=== PATIENT | female | born 1965 | race Two or more races ===

== ENCOUNTER → 2016-07-23 | Outpatient (CLI) | payer OTHER ==
--- NOTE | 2016-07-23 18:34 | DX ---
Three-View Cervical Spine Reason for examination: Neck pain and upper extremity radiculopathy in a 50-year-old female. Findings: A fracture is not identified. There is straightening of the normal cervical curvature, othe rwise the alignment is normal. Prevertebral soft tissues appear normal. Vertebral body heights are we ll-maintained. Degenerative changes are seen with disk space loss and vertebral body osteophytic danya ing noted at C4-C5 and C5-C6. IMPRESSION: 1. Negative for acute abnormality with possible muscle spasm noted. 2. Degenerative changes are seen as detailed above. If symptoms persist, MRI could be considered for further evaluation.
== END ==
LOC: CIMAGING 17:12
PROVIDERS: ATTEND Family Medicine
DX: M54.12 Radiculopathy, cervical region (principal)
CPT/HCPCS: 72040-PO

== ENCOUNTER → 2016-09-12 | Outpatient (CLI) | payer OTHER | LOC: CIMAGING 15:18 | PROVIDERS: ATTEND Physician Assistant Medical | DX: Z13.89 Encounter for screening for other disorder (principal); R91.8 Other nonspecific abnormal finding of lung field | CPT/HCPCS: 71020-PO ==

== ENCOUNTER 2016-09-20 17:29 | Emergency (ER) | payer OTHER ==
[2016-09-20] MEDS ORDERED: NS 1,000 ML IV ONE (17:57)
[2016-09-20 18:17] LABS: % IMMATURE GRANULYOCYTES 1.3 % (0.0-1.1); ADD DIFF? NO; ADD MORPH? NO; ADD SCAN? NO; ATYPICAL LYMPHOCYTE FLAG 0 (0-99); FRAGMENT RBC FLAG 0 (0-99); HEMATOCRIT 38.9 % (38.0-47.0); HEMOGLOBIN 13.1 g/dL (12.6-16.3); LEFT SHIFT FLG 70 (0-99); LIPEMIA HEMOLYSIS FLAG 80 (0-99); MEAN CELL HEMOGLOBIN 30.8 pg (27.9-34.1); MEAN CELL HEMOGLOBIN CONCENTR. 33.7 g/dL (32.4-36.7); MEAN CELL VOLUME 91.3 fL (81.5-99.8); MEAN PLATELET VOLUME 10.5 fL (8.7-11.7); PLATELET CLUMPS FLAG 10 (0-99); PLATELET COUNT 322 10^3/uL (150-400); RED BLOOD CELL COUNT 4.26 10^6/uL (4.18-5.33); RED CELL DISTRIBUTION WIDTH 14.3 % (11.5-15.2)
[2016-09-20 18:24] LABS: ALANINE AMINOTRANSFERASE 96 IU/L (9-52); ALBUMIN 3.8 g/dL (3.5-5.0); ALKALINE PHOSPHATASE 198 IU/L (38-126); ANION GAP 11 mEq/L (8-16); ASPARTATE AMINOTRANSFERASE 45 IU/L (14-46); BILIRUBIN,TOTAL 11.2 mg/dL (0.1-1.4); BILIRUBIN-CONJUGATED 9.7 mg/dL (0.0-0.5); BILIRUBIN-UNCONJUGATED 1.5 mg/dL (0.0-1.1); CALCIUM 9.2 mg/dL (8.5-10.4); CARBON DIOXIDE 24 mEq/l (22-31); CHLORIDE 108 mEq/L (97-110); CREATININE 0.8 mg/dL (0.6-1.0); GLOMERULAR FILTRATION RATE > 60; GLUCOSE 163 mg/dL (70-100); POTASSIUM 3.9 mEq/L (3.5-5.2); SODIUM 143 mEq/L (134-144); TOTAL PROTEIN 7.5 g/dL (6.3-8.2)
--- NOTE | 2016-09-20 18:29 | EDPHY ---
H & P Time Seen by Provider: 09/20/16 18:01 HPI/ROS: Chief complaint. Painless jaundice HPI. 50-year-old female here with yellow eyes in yellow skin started today. She was at a in family gathering in the family noticed that her eyes were yellow. She has no abdominal pain, vomiting diarrhea, fever. She had influenza 2 weeks ago and then 1 week ago was diagnosed with pneumonia. She has taken cefdinir and Tussionex as antibiotic and cough medication. Did cause itching and so medications have been changed around somewhat. No previous symptoms of jaundice. No reasons for hepatitis or recent travel. She still has her gallbladder ROS Constitutional. no fever/chills, no weakness Eyes. Yellow eyes ENT. no sore throat, no nasal drainage Cardiovascular. no chest pain Respiratory. no shortness of breath, no cough Abdominal. no abdominal pain, no nausea/vomiting, no diarrhea . no problems urinating MS. no calf pain/swelling, no neck/back pain, no joint pain Skin. no rash Lymph. no swollen glands Neuro. no headache, no dizziness, no difficulty walking or with speech Past Medical/Surgical History: Past medical history significant for depression Social History: Single, nonsmoker, no alcohol Smoking Status: Never smoked Physical Exam: General Appearance: Alert pleasant well-developed female mild distress vital signs are stable Eyes: Scleral icterus. ENT, Mouth: Mucous membranes are moist. Respiratory: There are no retractions, lungs are clear to auscultation. Cardiovascular: Regular rate and rhythm. Gastrointestinal: Abdomen is soft and nontender, no masses, bowel sounds normal. Neurological: Awake and alert, sensory and motor exams grossly normal. Skin: Warm and dry, no rashes. Musculoskeletal: Neck is supple nontender. Extremities symmetrical, full range of motion. Psychiatric: Patient is oriented X 3, there is no agitation. Constitutional: Initial Vital Signs Temperature (C) 36.7 C 09/20/16 17:33 Heart Rate 90 09/20/16 17:33 Respiratory Rate 17 09/20/16 17:33 Blood Pressure 119/70 09/20/16 17:33 O2 Sat (%) 95 09/20/16 17:33 O2 Delivery Mode Room Air Allergies/Adverse Reactions: chlorpheniramine polistirex [From Tussionex] Allergy (Verified 09/20/16 17:30) hydrocodone polistirex [From Tussionex] Allergy (Verified 09/20/16 17:30) Home Medications: Medication Instructions Recorded Cefdinir 09/20/16 Ventolin Hfa Inhaler 09/20/16 Medical Decision Making - Diagnostics Imaging: CT abdomen pelvis with IV contrast shows splenomegaly, hepatomegaly. No biliary duct dilation. No ascites. No pancreatic mass visible. This is reviewed by me and discussed with Dr. Potter Procedures: IV normal saline ED Course/Re-evaluation: I consulted and discussed the case with Dr. Mackey on-call for Gastroenterology. He feels this may well be drug induced hyperbilirubinemia. He recommends stopping the cefdinir. He would like to see the patient in the office on Thursday. Re-evaluation at 8:00 p.m.. Patient is stable. She has no complaints. She is fine with being treated as an outpatient. We discussed lab results, treatment plan, criteria for return importance of follow-up further evaluation. She expresses understanding and agreement Differential Diagnosis: Certainly I was concerned about pancreatic cancer or biliary duct obstruction or cancer. This may be drug induced. I have also considered hepatitis - Data Points Laboratory Results: Laboratory Results 09/20/16 17:50 09/20/16 17:50 09/20/16 09/20/16 17:50 17:50 WBC 7.78 10^3/uL 10^3/uL (3.80-9.50) RBC 4.26 10^6/uL 10^6/uL (4.18-5.33) Hgb 13.1 g/dL g/dL (12.6-16.3) Hct 38.9 % % (38.0-47.0) MCV 91.3 fL fL (81.5-99.8) MCH 30.8 pg pg (27.9-34.1) MCHC 33.7 g/dL g/dL (32.4-36.7) RDW 14.3 % % (11.5-15.2) Plt Count 322 10^3/uL 10^3/uL (150-400) MPV 10.5 fL fL (8.7-11.7) Neut % (Auto) 80.0 % H % (39.3-74.2) Lymph % (Auto) 8.7 % L % (15.0-45.0) [place] % (Auto) 9.5 % % (4.5-13.0) Eos % (Auto) 0.1 % L % (0.6-7.6) Baso % (Auto) 0.4 % % (0.3-1.7) Nucleat RBC Rel Count 0.0 % % (0.0-0.2) Absolute Neuts (auto) 6.22 10^3/uL 10^3/uL (1.70-6.50) Absolute Lymphs (auto) 0.68 10^3/uL L 10^3/uL (1.00-3.00) Absolute Monos (auto) 0.74 10^3/uL 10^3/uL (0.30-0.80) Absolute Eos (auto) 0.01 10^3/uL L 10^3/uL (0.03-0.40) Absolute Basos (auto) 0.03 10^3/uL 10^3/uL (0.02-0.10) Absolute Nucleated RBC 0.00 10^3/uL 10^3/uL (0-0.01) Immature Gran % 1.3 % H % (0.0-1.1) Immature Gran # 0.10 10^3/uL 10^3/uL (0.00-0.10) Sodium 143 mEq/L mEq/L (134-144) Potassium 3.9 mEq/L mEq/L (3.5-5.2) Chloride 108 mEq/L mEq/L (97-110) Carbon Dioxide 24 mEq/l mEq/l (22-31) Anion Gap 11 mEq/L mEq/L (8-16) BUN 16 mg/dL mg/dL (7-23) Creatinine 0.8 mg/dL mg/dL (0.6-1.0) Estimated GFR > 60 Glucose 163 mg/dL H mg/dL (70-100) Calcium 9.2 mg/dL mg/dL (8.5-10.4) Total Bilirubin 11.2 mg/dL H mg/dL (0.1-1.4) Conjugated Bilirubin 9.7 mg/dL H mg/dL (0.0-0.5) Unconjugated Bilirubin 1.5 mg/dL H mg/dL (0.0-1.1) AST 45 IU/L IU/L (14-46) ALT 96 IU/L H IU/L (9-52) Alkaline Phosphatase 198 IU/L H IU/L (38-126) Total Protein 7.5 g/dL g/dL (6.3-8.2) Albumin 3.8 g/dL g/dL (3.5-5.0) Lipase 131.0 IU/L IU/L (23-300) Medications Given: Discontinued Medications Sodium Chloride (Ns) 1,000 mls @ 0 mls/hr IV EDNOW ONE PRN Reason: Wide Open Stop: 09/20/16 17:58 Last Admin: 09/20/16 18:07 Dose: 1,000 mls Departure - Departure Disposition: Home, Routine, Self-Care Clinical Impression: Jaundice Condition: Good Instructions: Jaundice (ED) Additional Instructions: Stop the cefdinir as antibiotic. Discontinue Vistaril as long as you know needed for the itching. Return for abdominal pain, fever, vomiting over the weekend. Call 's office on Thursday morning and they would like to see you in the office on Thursday or Thursday. Referrals: Cruz Thompson MD [Primary Care Provider] - As per Instructions Curly Mackey MD [Medical Doctor] - 1-2 days without fail
[2016-09-20] MEDS ORDERED: IOPAMIDOL (ISOVUE-300) 100 ML BTL IV ONE (18:33)
[2016-09-20 20:22] VITALS: BP 92/48; PULSE 74; RESP 16; TEMP 98.6; O2SAT 94
[2016-09-20 20:25] LABS: INR 0.91 (0.83-1.16); PROTIME(PATIENT) 12.1 SEC (12.0-15.0)
[2016-09-20 20:26] LABS: APTT 33.5 SEC (23.0-38.0)
[2016-09-20 20:56] LABS: SEDIMENTATION RATE 80 MM/HR (0-30)
== END 2016-09-20 20:26 | disposition home or self-care (01) ==
DX: R17 Unspecified jaundice (principal)
CPT/HCPCS: G0472; Q9967

== ENCOUNTER 2016-10-06 09:44 | Observation (INO) | payer OTHER ==
[2016-10-06 10:45] LABS: % IMMATURE GRANULYOCYTES 2.4 % (0.0-1.1); ABSOLUTE IMMATURE GRANULOCYTES 0.19 10^3/uL (0.00-0.10); ADD DIFF? NO; ADD MORPH? NO; ADD SCAN? NO; ATYPICAL LYMPHOCYTE FLAG 0 (0-99); FRAGMENT RBC FLAG 10 (0-99); HEMATOCRIT 32.5 % (38.0-47.0); HEMOGLOBIN 10.8 g/dL (12.6-16.3); LEFT SHIFT FLG 70 (0-99); LIPEMIA HEMOLYSIS FLAG 80 (0-99); MEAN CELL HEMOGLOBIN 32.2 pg (27.9-34.1); MEAN CELL HEMOGLOBIN CONCENTR. 33.2 g/dL (32.4-36.7); MEAN PLATELET VOLUME 10.8 fL (8.7-11.7); PLATELET CLUMPS FLAG 0 (0-99); PLATELET COUNT 264 10^3/uL (150-400); RED BLOOD CELL COUNT 3.35 10^6/uL (4.18-5.33)
[2016-10-06 11:00] LABS: ALANINE AMINOTRANSFERASE 51 IU/L (9-52); ALBUMIN 3.5 g/dL (3.5-5.0); ALKALINE PHOSPHATASE 210 IU/L (38-126); ANION GAP 11 mEq/L (8-16); ASPARTATE AMINOTRANSFERASE 46 IU/L (14-46); BILIRUBIN,TOTAL 15.7 mg/dL (0.1-1.4); BILIRUBIN-CONJUGATED 13.4 mg/dL (0.0-0.5); BILIRUBIN-UNCONJUGATED 2.3 mg/dL (0.0-1.1); CALCIUM 9.1 mg/dL (8.5-10.4); CARBON DIOXIDE 20 mEq/l (22-31); CHLORIDE 108 mEq/L (97-110); CREATININE 0.7 mg/dL (0.6-1.0); GLOMERULAR FILTRATION RATE > 60; GLUCOSE 105 mg/dL (70-100); POTASSIUM 3.9 mEq/L (3.5-5.2); SODIUM 139 mEq/L (134-144); TOTAL PROTEIN 7.5 g/dL (6.3-8.2)
[2016-10-06] MEDS ORDERED: NS 1,000 ML IV ONE (11:56)
--- NOTE | 2016-10-06 13:00 | EDPHY ---
H & P Stated Complaint: Lisa, SOB, Itching Time Seen by Provider: 10/06/16 10:24 HPI/ROS: Chief complaint: Hyperbilirubinemia History of present illness: This is a 51-year-old female who presents to the emergency department for evaluation of hyperbilirubinemia. Patient presented to this emergency department at the end of August for jaundice. She was diagnosed with hyperbilirubinemia at that time. States she was evaluated and told ultimately that this is likely secondary to an antibiotic she had been on for a pneumonia. She states she was told it was secondary to fluoroquinolones, however on review of previous medical records it show she was on cefdinir. She was discharged home and followed up with Gastroenterology. She was asked to stop all medication she was on. She states she continues to be jaundiced, she reports persistent itching, she also reports decreased appetite as eating or drinking anything makes her very nauseated and she is no longer sleeping. She is concerned as symptoms do not appear to be improving. She states she is scheduled to see a liver doctor at the end of this month. Review of systems: A 10 point review of systems was obtained and other than described above was negative - Personal History LMP (Females 10-55): Post Menopausal Current Tetanus Diphtheria and Acellular Pertussis (TDAP): Yes - Medical/Surgical History Hx Asthma: No Hx Chronic Respiratory Disease: No Hx Diabetes: No Hx Cardiac Disease: No Hx Renal Disease: No Hx Cirrhosis: No Hx Alcoholism: No Hx HIV/AIDS: No Hx Splenectomy or Spleen Trauma: No Other PMH: DEPRESSION, jaundice, pleurisy - Social History Smoking Status: Never smoked - Physical Exam Exam: General Appearance: Alert, nontoxic. Eyes: Pupils equal and round no pallor or injection. Sclera icteric. ENT, Mouth: Mucous membranes moist. Respiratory: There are no retractions, lungs are clear to auscultation. Cardiovascular: Regular rate and rhythm. Gastrointestinal: Abdomen is soft and nontender, no masses, bowel sounds normal. Neurological: Alert and oriented. Strength and sensation intact and symmetrical. Skin: Diffuse jaundice Musculoskeletal: Neck is supple nontender. Extremities are symmetrical, full range of motion. Psychiatric: Patient is oriented X 3, there is no agitation. Constitutional: Initial Vital Signs Temperature (C) 36.8 C 10/06/16 13:06 Heart Rate 97 10/06/16 13:06 Respiratory Rate 16 10/06/16 13:06 Blood Pressure 94/56 L 10/06/16 13:06 O2 Sat (%) 98 10/06/16 13:06 Allergies/Adverse Reactions: fluoroquinolones Allergy (Uncoded 10/06/16 09:55) Home Medications: Medication Instructions Recorded Albuterol [Proventil Inhaler HFA 1 - 2 puffs IH DAILY PRN 10/06/16 (*)] buPROPion XL [Wellbutrin Xl] 300 mg PO DAILY 10/06/16 Medical Decision Making - Diagnostics Imaging: Imaging Impressions Abdomen Ultrasound 10/06/16 11:25 Impression: Tail of the pancreas is not well visualized, secondary to overlying bowel gas. Otherwise normal right upper quadrant ultrasound. Results called and discussed with Jose Simon PA-C, on October 06, 2016 at 1207 hours. ED Course/Re-evaluation: Patient discussed with my secondary supervising physician Dr. Lazarus Webber. Patient presents to the emergency department having recently been diagnosed with hyperbilirubinemia. She has continued jaundice, itching, decreased appetite and insomnia. Her recent course is not entirely clear. Ultimately I believe it prudent that she be admitted for further evaluation and care. She is admitted to Dr. Nory Senior. I have consulted with Gastroenterology, Dr. Barnhart. He does ask if inpatient team needs help in further evaluating this patient to give him a call, otherwise he can facilitate close follow-up with patient on an outpatient basis. I have discussed the plan with the patient and she does want to be admitted. Differential Diagnosis: Included but not limited to medication induced problems, cancer, obstructive pathology - Data Points Laboratory Results: Laboratory Results 10/06/16 10:25 10/06/16 10:25 10/06/16 10/06/16 10:25 10:25 WBC 7.82 10^3/uL 10^3/uL (3.80-9.50) RBC 3.35 10^6/uL L 10^6/uL (4.18-5.33) Hgb 10.8 g/dL L g/dL (12.6-16.3) Hct 32.5 % L % (38.0-47.0) MCV 97.0 fL fL (81.5-99.8) MCH 32.2 pg pg (27.9-34.1) MCHC 33.2 g/dL g/dL (32.4-36.7) RDW 15.0 % % (11.5-15.2) Plt Count 264 10^3/uL 10^3/uL (150-400) MPV 10.8 fL fL (8.7-11.7) Neut % (Auto) 76.4 % H % (39.3-74.2) Lymph % (Auto) 5.8 % L % (15.0-45.0) Dukes % (Auto) 13.3 % H % (4.5-13.0) Eos % (Auto) 1.5 % % (0.6-7.6) Baso % (Auto) 0.6 % % (0.3-1.7) Nucleat RBC Rel Count 0.0 % % (0.0-0.2) Absolute Neuts (auto) 5.97 10^3/uL 10^3/uL (1.70-6.50) Absolute Lymphs (auto) 0.45 10^3/uL L 10^3/uL (1.00-3.00) Absolute Monos (auto) 1.04 10^3/uL H 10^3/uL (0.30-0.80) Absolute Eos (auto) 0.12 10^3/uL 10^3/uL (0.03-0.40) Absolute Basos (auto) 0.05 10^3/uL 10^3/uL (0.02-0.10) Absolute Nucleated RBC 0.00 10^3/uL 10^3/uL (0-0.01) Immature Gran % 2.4 % H % (0.0-1.1) Immature Gran # 0.19 10^3/uL H 10^3/uL (0.00-0.10) Sodium 139 mEq/L mEq/L (134-144) Potassium 3.9 mEq/L mEq/L (3.5-5.2) Chloride 108 mEq/L mEq/L (97-110) Carbon Dioxide 20 mEq/l L mEq/l (22-31) Anion Gap 11 mEq/L mEq/L (8-16) BUN 15 mg/dL mg/dL (7-23) Creatinine 0.7 mg/dL mg/dL (0.6-1.0) Estimated GFR > 60 Glucose 105 mg/dL H mg/dL (70-100) Calcium 9.1 mg/dL mg/dL (8.5-10.4) Total Bilirubin 15.7 mg/dL H mg/dL (0.1-1.4) Conjugated Bilirubin 13.4 mg/dL H mg/dL (0.0-0.5) Unconjugated Bilirubin 2.3 mg/dL H mg/dL (0.0-1.1) AST 46 IU/L IU/L (14-46) ALT 51 IU/L IU/L (9-52) Alkaline Phosphatase 210 IU/L H IU/L (38-126) Total Protein 7.5 g/dL g/dL (6.3-8.2) Albumin 3.5 g/dL g/dL (3.5-5.0) Lipase 71.0 IU/L IU/L (23-300) Medications Given: Discontinued Medications Diphenhydramine HCl (Benadryl Injection) 25 mg IVP EDNOW ONE Stop: 10/06/16 11:39 Last Admin: 10/06/16 11:56 Dose: 25 mg Sodium Chloride (Ns) 1,000 mls @ 0 mls/hr IV ONCE ONE PRN Reason: Wide Open Stop: 10/06/16 11:57 Last Admin: 10/06/16 11:56 Dose: 1,000 mls Departure - Departure Disposition: [facility] Clinical Impression: Hyperbilirubinemia Condition: Good
[2016-10-06] MEDS ORDERED: LORazepam 0.5 MG TAB PO PRN (13:59)
[2016-10-06] MEDS ORDERED: ACETAMINOPHEN 325 MG TAB PO PRN (13:59)
[2016-10-06] MEDS ORDERED: HYDROmorphONE/DILAUDID 1 MG/ML SYR IVP PRN (13:59)
[2016-10-06] MEDS ORDERED: ONDANSETRON DISINTEGRATING 4 MG TAB PO PRN (13:59)
[2016-10-06] MEDS ORDERED: ONDANSETRON 4 MG/2 ML VIAL IVP PRN (13:59)
[2016-10-06] MEDS ORDERED: ALBUTEROL 60 PUFFS/8 GM MDI IH PRN (14:03)
--- NOTE | 2016-10-06 15:11 | PDGENHP ---
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 Patient had been started on cefidinir as well as levofloxacin for her pna, and shortly thereafter developed itching and yellowed skin and eyes. She was referred to GI of the [facility] who felt that this most fit the picture of medication induced cholestasis. She has had continued cough since her PNA, she thinks it is going on 6 weeks of coughing. She stopped the antibiotics after seeing GI, she has not had recurrent fever or chills. She has had non stop itching due to her elevated bilirubin, and between that and the coughing she has had essentially no sleep. She does not take any over the counter medication on a regular basis, she did have nyquil 2 times in the last several weeks and took advil once or twice. She otherwise has no new complaints or concerns. She has never had liver issues in the past. She did have pneumonia in the past and had a fairly long hospitalization here for that. 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 Review of Systems ROS: 10pt was reviewed & negative except for what was stated in HPI & below Physical Exam Temp Pulse Resp BP Pulse Ox 37.1 C 87 16 91/49 L 95 10/06/16 13:53 10/06/16 13:53 10/06/16 13:53 10/06/16 13:53 10/06/16 13:53 Constitutional: no apparent distress, appears nourished Eyes: EOMI, icteric sclera Ears, Nose, Mouth, Throat: moist mucous membranes, hearing normal Cardiovascular: regular rate and rhythym, no murmur, rub, or gallop Respiratory: no respiratory distress, no rales or rhonchi Gastrointestinal: normoactive bowel sounds, soft, non-tender abdomen, no palpable masses Skin: warm, No normal color (jaundiced) Musculoskeletal: full muscle strength, no muscle tenderness Neurologic: AAOx3 Psychiatric: interacting appropriately, not anxious, not encephalopathic Lab Data & Imaging Review 10/06/16 10:25 10/06/16 10:25 WBC 7.82 10^3/uL (3.80-9.50) 10/06/16 10:25 RBC 3.35 10^6/uL (4.18-5.33) L 10/06/16 10:25 Hgb 10.8 g/dL (12.6-16.3) L 10/06/16 10:25 Hct 32.5 % (38.0-47.0) L 10/06/16 10:25 MCV 97.0 fL (81.5-99.8) 10/06/16 10:25 MCH 32.2 pg (27.9-34.1) 10/06/16 10:25 MCHC 33.2 g/dL (32.4-36.7) 10/06/16 10:25 RDW 15.0 % (11.5-15.2) 10/06/16 10:25 Plt Count 264 10^3/uL (150-400) 10/06/16 10:25 MPV 10.8 fL (8.7-11.7) 10/06/16 10:25 Neut % (Auto) 76.4 % (39.3-74.2) H 10/06/16 10:25 Lymph % (Auto) 5.8 % (15.0-45.0) L 10/06/16 10:25 Duval % (Auto) 13.3 % (4.5-13.0) H 10/06/16 10:25 Eos % (Auto) 1.5 % (0.6-7.6) 10/06/16 10:25 Baso % (Auto) 0.6 % (0.3-1.7) 10/06/16 10:25 Nucleat RBC Rel Count 0.0 % (0.0-0.2) 10/06/16 10:25 Absolute Neuts (auto) 5.97 10^3/uL (1.70-6.50) 10/06/16 10:25 Absolute Lymphs (auto) 0.45 10^3/uL (1.00-3.00) L 10/06/16 10:25 Absolute Monos (auto) 1.04 10^3/uL (0.30-0.80) H 10/06/16 10:25 Absolute Eos (auto) 0.12 10^3/uL (0.03-0.40) 10/06/16 10:25 Absolute Basos (auto) 0.05 10^3/uL (0.02-0.10) 10/06/16 10:25 Absolute Nucleated RBC 0.00 10^3/uL (0-0.01) 10/06/16 10:25 Immature Gran % 2.4 % (0.0-1.1) H 10/06/16 10:25 Immature Gran # 0.19 10^3/uL (0.00-0.10) H 10/06/16 10:25 Sodium 139 mEq/L (134-144) 10/06/16 10:25 Potassium 3.9 mEq/L (3.5-5.2) 10/06/16 10:25 Chloride 108 mEq/L (97-110) 10/06/16 10:25 Carbon Dioxide 20 mEq/l (22-31) L 10/06/16 10:25 Anion Gap 11 mEq/L (8-16) 10/06/16 10:25 BUN 15 mg/dL (7-23) 10/06/16 10:25 Creatinine 0.7 mg/dL (0.6-1.0) 10/06/16 10:25 Estimated GFR > 60 10/06/16 10:25 Glucose 105 mg/dL (70-100) H 10/06/16 10:25 Calcium 9.1 mg/dL (8.5-10.4) 10/06/16 10:25 Total Bilirubin 15.7 mg/dL (0.1-1.4) H 10/06/16 10:25 Conjugated Bilirubin 13.4 mg/dL (0.0-0.5) H 10/06/16 10:25 Unconjugated Bilirubin 2.3 mg/dL (0.0-1.1) H 10/06/16 10:25 AST 46 IU/L (14-46) 10/06/16 10:25 ALT 51 IU/L (9-52) 10/06/16 10:25 Alkaline Phosphatase 210 IU/L (38-126) H 10/06/16 10:25 Total Protein 7.5 g/dL (6.3-8.2) 10/06/16 10:25 Albumin 3.5 g/dL (3.5-5.0) 10/06/16 10:25 Lipase 71.0 IU/L (23-300) 10/06/16 10:25 Visualized and Interpreted imaging results: Yes Interpretation: abd CT with HSM, no ductal dilation Assessment & Plan Assessment: 51 yo F with PMH of prior PNA and recent PNA/influenza with 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 At this point given imaging, negative viral serologies and history sounds most c/w medication related. Has not had autoimmune w/u however that would not foreign exchange trader at this point given normal transaminases. GI noted that this would be in keeping with usual time course for this condition. Starting ursodiol for itching related to cholestasis. Benadryl prn. Monitor overnight # recent pna: with continued dry cough, will repeat cxr, lungs sound clear, not hypoxic. Unless CXR significantly worse would not restart abx at this time, will provide prn robitussin ac # depression: continue wellbutrin # insomnia: related to itching and cough, benadryl/cough medicine, monitoring overnight # dispo: observation status, likely will need < 48 hours stay for eval/mgmt of above Patient new to my care. Care plan reviewed with ER doc and GI. Old records reviewed and summarized as per HPI.
[2016-10-06 16:01] LABS: INR 1.03 (0.83-1.16); PROTIME(PATIENT) 13.4 SEC (12.0-15.0)
[2016-10-06 16:02] LABS: APTT 39.8 SEC (23.0-38.0)
[2016-10-06] MEDS: URSODIOL 300 MG CAP PO SCH (17:39)
[2016-10-06] MEDS: diphenhydrAMINE 25 MG CAP PO PRN ×2 (17:39→23:14)
[2016-10-06] MEDS: buPROPion XL 150 MG TAB PO SCH (19:42)
[2016-10-06] MEDS: oxyCODONE IR 5 MG TAB PO PRN (21:38)
[2016-10-06] MEDS: guaiFENesin/CODEINE PHOS 10 ML UDCUP PO PRN (21:39)
[2016-10-07] MEDS: oxyCODONE IR 5 MG TAB PO PRN (03:19)
[2016-10-07] MEDS: guaiFENesin/CODEINE PHOS 10 ML UDCUP PO PRN (03:19)
[2016-10-07 05:30] LABS: % IMMATURE GRANULYOCYTES 2.4 % (0.0-1.1); ABSOLUTE IMMATURE GRANULOCYTES 0.14 10^3/uL (0.00-0.10); ADD DIFF? NO; ADD MORPH? NO; ADD SCAN? NO; ATYPICAL LYMPHOCYTE FLAG 0 (0-99); FRAGMENT RBC FLAG 10 (0-99); HEMOGLOBIN 9.2 g/dL (12.6-16.3); LEFT SHIFT FLG 60 (0-99); LIPEMIA HEMOLYSIS FLAG 80 (0-99); MEAN CELL HEMOGLOBIN 31.5 pg (27.9-34.1); MEAN CELL HEMOGLOBIN CONCENTR. 31.7 g/dL (32.4-36.7); MEAN CELL VOLUME 99.3 fL (81.5-99.8); MEAN PLATELET VOLUME 10.6 fL (8.7-11.7); PLATELET CLUMPS FLAG 10 (0-99); PLATELET COUNT 222 10^3/uL (150-400); RED BLOOD CELL COUNT 2.92 10^6/uL (4.18-5.33); RED CELL DISTRIBUTION WIDTH 14.9 % (11.5-15.2)
[2016-10-07] MEDS: diphenhydrAMINE 25 MG CAP PO PRN ×2 (05:59→12:00)
[2016-10-07 06:24] LABS: ALANINE AMINOTRANSFERASE 48 IU/L (9-52); ALBUMIN 2.9 g/dL (3.5-5.0); ALKALINE PHOSPHATASE 163 IU/L (38-126); ANION GAP 9 mEq/L (8-16); ASPARTATE AMINOTRANSFERASE 41 IU/L (14-46); BILIRUBIN,TOTAL 12.1 mg/dL (0.1-1.4); CALCIUM 8.5 mg/dL (8.5-10.4); CARBON DIOXIDE 22 mEq/l (22-31); CHLORIDE 108 mEq/L (97-110); CREATININE 0.7 mg/dL (0.6-1.0); GLOMERULAR FILTRATION RATE > 60; GLUCOSE 94 mg/dL (70-100); MAGNESIUM 2.3 mg/dL (1.6-2.3); POTASSIUM 3.9 mEq/L (3.5-5.2); SODIUM 139 mEq/L (134-144); SPECIMEN ICTERUS 8; TOTAL PROTEIN 6.3 g/dL (6.3-8.2)
[2016-10-07 06:31] LABS: BILIRUBIN-CONJUGATED 10.2 mg/dL (0.0-0.5); BILIRUBIN-UNCONJUGATED 1.9 mg/dL (0.0-1.1)
[2016-10-07 07:57] VITALS: RESP 18
[2016-10-07] MEDS: buPROPion XL 150 MG TAB PO SCH (08:19)
[2016-10-07] MEDS: URSODIOL 300 MG CAP PO SCH ×2 (08:19→12:00)
[2016-10-07] MEDS ORDERED: ENOXAPARIN 40 MG/0.4 ML SYR SC SCH (09:00)
[2016-10-07] MEDS ORDERED: CETIRIZINE 10 MG TAB PO SCH (09:30)
[2016-10-07] MEDS ORDERED: NALTREXONE HCL 50 MG TAB PO ONE (11:34)
[2016-10-07 12:01] VITALS: BP 92/64; PULSE 91; TEMP 98.6; O2SAT 96
--- NOTE | 2016-10-07 12:28 | PDDCSUM ---
Discharge Summary Discharge Summary: Dates of service 10/06-10/07/16 Consultations: GI Procedures performed: abd Hospital course by problem: # medication induced cholestasis: reviewed care plan with patient and GI, appreciate GI input. Suspect this will continue to resolve but has f/u set up with Maddie in 1 week. Dc on cholestyramine, ursodiol, natrexone, benadry and zyrtec for management of itching. Asma added to w/u and will f/u with GI for results. # recent pna: seems to have resolved though residual cough present, dc with robitussin and f/u with pcp # depression: continue wellbutrin # insomnia: related to itching and cough, benadryl/cough medicine, improved with better control of itching Meds: see EHR F/u with GI on 10/15 > 35 minutes spent in care of this patient more than half in face to face counseling of patient regarding f/u care plan as well as coordination of care
--- NOTE | 2016-10-07 12:33 | GCON ---
[f rep st] CONSULTATION REFERRING PHYSICIAN: Nory Senior MD REASON FOR CONSULTATION: Cholestasis and pruritus. HISTORY OF PRESENT ILLNESS: I was asked by Dr. Senior to see the patient for the chief complaint of pruritus and cholestasis. The patient is a 51-year-old, healthy, female who presented to the hospital on 10/06/2016 for the evaluation of pruritus and cholestatic jaundice. 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 Approximately 1 month ago she was started on antibiotics for pneumonia. She took both the cephalosporin as well as levofloxacin. Soon after , those therapies, she developed pruritus, icterus, and sought evaluation. She was noted to have a predominantly cholestatic liver function panel. Her subsequent evaluation has included laboratory testing for reasons for cholestasis as well as imaging to rule out biliary duct obstruction. These tests have been unremarkable. 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 She reports she was having gradual worsening until yesterday. She is having increasing itching. She has been unable to sleep. As a consequence of those symptoms, she presents to the emergency room for evaluation and treatment. Her hospital course has been uncomplicated. She has had additional pruritus therapies as well as IV fluids. She reports she has had some minimal improvement in her symptoms overall. PAST MEDICAL HISTORY: Includes recent pneumonia. She has perhaps some underlying Sjogren's disease. HOME MEDICINES: Albuterol and Wellbutrin. She had been prescribed cholestyramine but maybe was not taking it. PAST SURGICAL HISTORY: She has had a . FAMILY HISTORY: Negative for liver disease. SOCIAL HISTORY: She does not drink smoke or use drugs. REVIEW OF SYSTEMS: A complete 10-system review is undertaken with the patient and is negative except for those details described in the history of present illness. PHYSICAL EXAM: GENERAL: This is a well-developed female in no apparent distress. HEENT: Her pupils are equal, round, reactive to light and accommodation. Her sclerae are markedly icteric. Oropharynx is clear. NECK: Supple without lymphadenopathy. HEART: Regular without murmur. ABDOMEN: Soft , nontender. She has no hepatosplenomegaly. She has no right upper quadrant tenderness to palpation. EXTREMITIES: Free of cyanosis, clubbing, and edema. NEURO: Grossly nonfocal. SKIN: Warm and dry but shows jaundice. She has multiple small excoriations from scratching. NEUROLOGIC: Grossly intact. PSYCH: Reveals normal mood and affect. LABORATORY TESTING: White count of 5.82, hemoglobin of 9.2, hematocrit of 29, platelet count of 222. INR 1.03, sodium of 139, potassium of 3.9, chloride of 108, bicarb of 22, BUN of 9, creatinine of 0.7, total bilirubin of 12.1, conjugated bilirubin of 10.2, unconjugated bilirubin of 1.9, alkaline phosphatase of 163. AST and ALT were normal. Albumin of 2.9. Right upper quadrant ultrasound on 10/06/2016 revealed normal exam. Prior to her admission , she has undergone evaluation with additional autoimmune testing as well as testing related to viral hepatitis. These tests were negative. Per my review of her labs, the only perhaps missing lab could be antismooth muscle antibody. This is unlikely to be positive, but could be checked. IMPRESSION/RECOMMENDATIONS: Cholestasis. I suspect that the patient has a drug -induced intrahepatic cholestasis. This has been complicated by pruritis. The natural history of this illness is a prolonged course of recovery over several weeks to a short number of months. Meanwhile we can focus our energy on symptomatic management of pruritus. Cholestyramine as a bile acid sequestrant, naltrexone as a MU receptor antagonist, and ursodeoxycholic acid are potentially useful. In addition, histamine receptor blockers such as Benadryl or Alexia can also be useful. Hopefully with these therapies, she can obtain some relief from symptoms, and gradually improve over time. At this time, I do not think liver biopsy is warranted. If she does not have any improvement over the next several weeks, we can consider that in order to rule out other sources of intrahepatic cholestasis. At this time, I recommend she advance her diet, start her multiple pruritus therapies, and consider discharge home. /[id number]/MODL MTDD
[2016-10-07] MEDS ORDERED: CHOLESTYRAMINE/SUCROSE 4 GM PKT PO SCH (16:00)
== END 2016-10-07 14:27 | disposition home or self-care (01) ==
LOC: INTOOBSV 12:35 → F3E 13:46
PROVIDERS: ADMIT Internal Medicine; ATTEND Internal Medicine
DX: K83.1 Obstruction of bile duct (principal); R17 Unspecified jaundice; L29.9 Pruritus, unspecified; R05 Cough; F32.9 Major depressive disorder, single episode, unspecified; G47.09 Other insomnia
CPT/HCPCS: 71020; 76705; G0378; 86255-90; 96374; J1200; J1650

== ENCOUNTER → 2017-02-13 | Outpatient (CLI) | payer OTHER | LOC: FIMAGING 14:04 | PROVIDERS: ATTEND Family Medicine | DX: Z12.31 Encounter for screening mammogram for malignant neoplasm of breast (principal) | CPT/HCPCS: G0202 ==

== ENCOUNTER → 2018-03-19 | Outpatient (CLI) | payer OTHER | LOC: CIMAGING 09:37 | PROVIDERS: ATTEND Family Medicine | DX: Z12.31 Encounter for screening mammogram for malignant neoplasm of breast (principal) ==

== ENCOUNTER → 2018-10-11 | Outpatient (CLI) | payer OTHER | LOC: EMCIMAGING 12:37 | PROVIDERS: ATTEND Family Medicine | DX: R91.8 Other nonspecific abnormal finding of lung field (principal) | CPT/HCPCS: 71046-PN ==